=== PATIENT | male | born 1960 ===

== ENCOUNTER 2022-05-26 05:00 | Day surgery (SDC) | payer OTHER ==
[~2022-05-26 05:00] MED LIST: COZAAR25 MG PO; TRICOR145 MG PO
== END 2022-05-26 14:50 | disposition home or self-care (01) ==
LOC: CIR.AMB 05:00
PROVIDERS: ATTEND Urology
DX: C67.9 Malignant neoplasm of bladder, unspecified (principal); I10 Essential (primary) hypertension; E78.5 Hyperlipidemia, unspecified; Z20.822 Contact with and (suspected) exposure to COVID-19

== ENCOUNTER 2024-07-16 17:32 | Outpatient (CLI) | payer OTHER | END 2024-07-16 17:39 | disposition home or self-care (01) | LOC: LAB 17:32 | PROVIDERS: ATTEND Urology | DX: R97.20 Elevated prostate specific antigen [PSA] (principal) ==

== ENCOUNTER 2024-08-29 05:35 | Day surgery (SDC) | payer OTHER ==
[2024-08-21 08:59] VITALS: BP 144/83
[2024-08-21 09:16] LABS: URINE APPEARANCE Cloudy; URINE BILIRRUBIN Negative (NEGATIVE); URINE BLOOD Negative; URINE COLOR Yellow; URINE GLUCOSE Negative (NEGATIVE); URINE KETONE Negative (NEGATIVE); URINE LEUKOCYTE Large; URINE NITRATE Positive; URINE PROTEIN Trace (NEGATIVE); URINE UROBILINOGEN 0.2 E.U./dl
[2024-08-21 09:17] LABS: BASO % 0.8 % (0.1-1.2); EOS # 0.17 (0.04-0.54); EOS % 4.5 % (0.7-7.0); HEMATOCRIT 38.8 % (40.1-51.0); HEMOGLOBIN 13.2 g/dL (13.7-17.5); LYMPH # 1.34 (1.18-3.74); LYMPH % 35.2 % (19.3-53.1); MEAN CORPUSCULAR HEMOGLOBIN 29.3 pg (25.6-32.2); MONO # 0.54 (0.24-0.82); NEUT # 1.73 (1.56-6.13); NEUT % 45.3 % (34.0-71.1); PLATELET COUNT 336 K/uL (163-369); RED CELL DISTRIBUTION WIDTH 12.6 % (11.6-14.4)
[2024-08-21 09:18] LABS: URINE RBC 6.3 uL (0.0-20.8); URINE WBC 1081.5 uL (0.0-23.2)
[2024-08-21 09:20] LABS: MONO % 14.2 % (4.7-12.5)
[2024-08-21 09:25] LABS: URINE BACTERIA > 9821.5 uL (0.0-1933); URINE CAST 0.14 uL (0.0-1.40); URINE EPITHELIAL CELLS 0.4 uL (0.0-38.8)
[2024-08-21 09:33] LABS: PARTIAL THROMBOPLASTIN TIME 27.2 SECONDS (22.0-34.0); PROTHROMBIN TIME 10.9 SECONDS (9.0-11.5)
[2024-08-21 09:46] LABS: COVID-19 AG NEGATIVE (NEGATIVE)
[2024-08-21 10:15] LABS: CALCIUM 9.5 mg/dL (8.5-10.1); CREATININE SERUM 0.83 mg/dL (0.70-1.30); GFR 92.98; POTASSIUM 4.33 mEq/L (3.5-5.1)
[~2024-08-29] VITALS: Ht 177.8 cm; Wt 76.2 kg
[~2024-08-29 05:35] MED LIST changes: +PRAVASTATIN SOD80 MG PO; +ZETIA10 MG PO
[2024-08-29] MEDS ORDERED: ERTAPENEM SODIUM 1,000 MG VIAL ONE (08:31)
== END 2024-08-29 16:30 | disposition home or self-care (01) ==
LOC: CIR.AMB 05:35
PROVIDERS: ATTEND Urology
DX: C67.9 Malignant neoplasm of bladder, unspecified (principal); R97.20 Elevated prostate specific antigen [PSA]; N41.1 Chronic prostatitis; N40.1 Benign prostatic hyperplasia with lower urinary tract symptoms; N30.20 Other chronic cystitis without hematuria